=== PATIENT | female | born 1960 | race Caucasian/White ===

== ENCOUNTER 2016-09-28 16:15 | Inpatient (IN) | payer BC ==
[~2016-09-28] VITALS: Ht 154.9 cm; Wt 47.5 kg
[~2016-09-28 16:15] MED LIST: AMBI10TA PO; APIDINJ SQ/IV; CAPT12.52 PO; LANTUSP SQ; LEVO50TA4 PO; PERC5TAB12 PO; PRENTAB PO; SIMV40TA PO; TAB-TAB PO; VENL100T PO
[2016-09-28 16:16] VITALS: BP 137/68; PULSE 112; RESP 20; TEMP 97.9; O2SAT 97
--- NOTE | 2016-09-28 16:29 | PD ---
Physical Exam Date Seen by Provider: Sep 28, 2016 Time Seen by Provider: 16:25 Narrative Patient seen in Triage. Patient is insulin dependent diabetic with Hx. Cat bite to the left hand and thumb 4 days ago. Patient seen by her PCP and placed on Cipro and Clindamycin PO with little improvement. Patient seen By Dr. Crawford today and told to come in to ED for admission for IV ABX. Patient denies Weakness or Numbness, but has ongoing pain and swelling. Patient denies Fever. Vital Signs Stable. Patient awaiting bed Placement. Data Data Last Documented VS Vital Signs Date Time Temp Pulse Resp B/P Pulse Ox O2 Delivery O2 Flow Rate FiO2 09/28/16 16:16 97.9 112 20 137/68 97 Room Air [facility] Medical Record Reviewed: Yes Supervised Visit with CARLA: Yes Condition: Stable Brian Del Cid Sep 28, 2016 16:29
[2016-09-28] MEDS ORDERED: SODIUM CHLORIDE 0.9% FLUSH 10 ML FLUSH IV FLUSH PRN ×2 (19:00→21:45)
--- NOTE | 2016-09-28 19:08 | PD ---
HPI Chief Complaint: Bite or Sting Time Seen by Provider: 18:53 Travel History International Travel<30 days: No Contact w/Intl Traveler<30days: No Traveled to known affect area: No History of Present Illness HPI Patient is a 56-year-old female who was bitten by a cat 2 days ago. Patient states this Belongs to her daughter but the cat had formerly lived on the street. Shots are unknown. Apparently the cat [facility] now [facility] and is scheduled for distraction and may have already been put down. Patient states she went to her primary care physician who arranged for her to see a hand surgeon today who is Dr. Crawford. Dr. Crawford stated to the patient that given her uncontrolled diabetes and the fact it is worse much she's been on antibiotics to come into the emergency department for IV antibiotics and be admitted. Patient denies any fevers denies any abdominal pain nausea vomiting diarrhea. Patient is penicillin allergic and states that her face swells when she receives penicillin. PFSH Past Medical History Anemia: Yes Cardiovascular Problems: Yes (MITRAL VALVE PROLAPSE) High Cholesterol: Yes Diabetes: Yes Diminished Hearing: No Hypertension: Yes Menopausal: Yes Social History Alcohol Use: Yes (OCCAS. MIX DRINKS) Tobacco Use: No Substance Use: No Allergies-Medications (Allergen,Severity, Reaction): Coded Allergies: Advil (Verified Allergy, Severe, FACE SWELLS, 09/28/16) Sulfa (Verified Allergy, Severe, edema, 09/28/16) Penicillin (Verified Allergy, Unknown, facial edema, 09/28/16) Reported Meds & Prescriptions Reported Meds & Active Scripts Active Reported Captopril 12.5 Mg Tab 12.5 Mg PO BID Take 1 hour before meals. Levothyroxine (Levothyroxine Sodium) 50 Mcg Tab 50 Mcg PO DAILY Multiple Vitamin 1 Tab 1 Tab PO HS Simvastatin 40 Mg Tab 40 Mg PO HS Effexor XR 24 HR (Venlafaxine HCl) 75 Mg Cap 75 Mg PO BID Ambien (Zolpidem Tartrate) 5 Mg Tab 5-10 Mg PO HS PRN Novolog Inj (Insulin Aspart) 1,000 Unit/10 Ml Vial Unknown Dose SQ ACHS Max dose at bedtime:( )units; sugars less than 70,(0)units; sugars 150-199,(1) unit; sugars 200-249,(3) units; sugars 250-299,(5) units; sugars 300-349,(7) units; sugars greater than 349,(9) units Levemir Inj (Insulin Detemir) 1,000 unit/ 10 ML Vial 20 Units SQ HS Do not mix with any other Insulin. Review of Systems Except as stated in HPI: all other systems reviewed are Neg Physical Exam Narrative GENERAL: Well-developed well-nourished no apparent distress. SKIN: Focused skin assessment warm/dry. There are 2 puncture wounds on the left wrist. There is some mild surrounding cellulitis and swelling. Consistent with an animal bite cellulitis and dermatitis. There is also a small scratch over the right wrist. HEAD: Atraumatic. Normocephalic. EYES: Pupils equal and round. No scleral icterus. No injection or drainage. ENT: No nasal bleeding or discharge. Mucous membranes pink and moist. NECK: Trachea midline. No JVD. CARDIOVASCULAR: Regular rate and rhythm. No murmur appreciated. RESPIRATORY: No accessory muscle use. Clear to auscultation. Breath sounds equal bilaterally. GASTROINTESTINAL: Abdomen soft, non-tender, nondistended. Hepatic and splenic margins not palpable. MUSCULOSKELETAL: No obvious deformities. No clubbing. No cyanosis. No edema. Upper extremities: There is some mild edema and erythema over the left wrist as described. Some small scratches over the right wrist. Pulses motor and sensory intact distally in all 4 extremities, compartments are soft. NEUROLOGICAL: Awake and alert. No obvious cranial nerve deficits. Motor grossly within normal limits. Normal speech. PSYCHIATRIC: Appropriate mood and affect; insight and judgment normal. Data Data Last Documented VS Vital Signs Date Time Temp Pulse Resp B/P Pulse Ox O2 Delivery O2 Flow Rate FiO2 09/28/16 19:25 89 20 106/73 97 Room Air 09/28/16 16:16 97.9 Orders Complete Blood Count With Diff (09/28/16 18:53) Comprehensive Metabolic Panel (09/28/16 18:53) Lactic Acid (09/28/16 18:53) Iv Access Insert/Monitor (09/28/16 18:53) Ecg Monitoring (09/28/16 18:53) Oximetry (09/28/16 18:53) Sodium Chloride 0.9% Flush (Ns Flush) (09/28/16 19:00) Blood Culture (09/28/16 18:54) Hand, Complete ([id number]) (09/28/16 ) Ciprofloxacin 400 Mg Premix (Cipro 400 M (09/28/16 20:45) Metronidazole 500 Mg Inj (Flagyl 500 Mg (09/28/16 20:45) Rabies Vaccine Chick Emb Inj (Rabavert I (09/28/16 20:45) Rabies Immune Globulin Inj (Hyperrab S/D (09/28/16 20:45) Admit Order (Ed Use Only) (09/28/16 ) Admit To Inpatient (09/28/16 ) Vital Signs (Adult) Q4H (09/28/16 21:37) Activity Oob With Assistance (09/28/16 21:37) Shuttle Hand / Telemetry .CONTINUOUS (09/28/16 21:37) Sodium Chloride 0.9% Flush (Ns Flush) (09/28/16 21:45) Sodium Chloride 0.9% Flush (Ns Flush) (09/29/16 09:00) Basic Metabolic Panel (Bmp) (09/29/16 06:00) Complete Blood Count With Diff (09/29/16 06:00) Case Management Consult (09/28/16 21:37) Naloxone Inj (Narcan Inj) (09/28/16 21:45) Inpatient Certification (09/28/16 ) Consult Hand Surgery (09/28/16 ) Labs Laboratory Tests Test 09/28/16 19:30 White Blood Count 6.4 TH/MM3 Red Blood Count 4.43 MIL/MM3 Hemoglobin 13.0 GM/DL Hematocrit 37.5 % Mean Corpuscular Volume 84.8 FL Mean Corpuscular Hemoglobin 29.3 PG Mean Corpuscular Hemoglobin 34.6 % Concent Red Cell Distribution Width 12.6 % Platelet Count 168 TH/MM3 Mean Platelet Volume 8.7 FL Neutrophils (%) (Auto) 70.7 % Lymphocytes (%) (Auto) 20.0 % Monocytes (%) (Auto) 7.2 % Eosinophils (%) (Auto) 1.6 % Basophils (%) (Auto) 0.5 % Neutrophils # (Auto) 4.5 TH/MM3 Lymphocytes # (Auto) 1.3 TH/MM3 Monocytes # (Auto) 0.5 TH/MM3 Eosinophils # (Auto) 0.1 TH/MM3 Basophils # (Auto) 0.0 TH/MM3 CBC Comment DIFF FINAL Differential Comment Sodium Level 137 MEQ/L Potassium Level 3.8 MEQ/L Chloride Level 100 MEQ/L Carbon Dioxide Level 30.9 MEQ/L Anion Gap 6 MEQ/L Blood Urea Nitrogen 8 MG/DL Creatinine 0.67 MG/DL Estimat Glomerular Filtration 92 ML/MIN Rate Random Glucose 253 MG/DL Lactic Acid Level 0.9 mmol/L Calcium Level 8.6 MG/DL Total Bilirubin 1.0 MG/DL Aspartate Amino Transf 10 U/L (AST/SGOT) Alanine Aminotransferase 19 U/L (ALT/SGPT) Alkaline Phosphatase 111 U/L Total Protein 7.3 GM/DL Albumin 3.8 GM/DL MDM Medical Decision Making Medical Screen Exam Complete: Yes Emergency Medical Condition: Yes Differential Diagnosis Bite cellulitis, rabies exposure, uncontrolled diabetes. Narrative Course Patient was roomed in emergency department, I did discuss with Dr. Crawford who would like to see tomorrow morning at the patient is placed inpatient for IV antibiotics. I also discussed with the patient rabies prophylaxis and at this point I think that rabies prophylaxis is indicated as the patient does not have the cat and is not available for monitoring and was previously unvaccinated as well as a street. X-rays were obtained and showed no abnormality. The patient' s basic labs including CBC and CMP are reassuring. Patient was given immunoglobulin in both the left wrist and the right wrist at the sites of scratches/bites. This was given personally by me. She was also given the vaccine in her right gluteus. Would recommend that the patient receive repeat vaccination in her gluteal muscles on days 3, 7, 14 (today is day 0). This per CDC recommendations. These recommendations were discussed with Dr. Montoya when the patient was admitted. Diagnosis Primary Impression: Pasteurella cellulitis due to cat bite Admitting Information Admitting Physician Requests: Admit Condition: Stable Teddy Baugh MD Sep 28, 2016 19:08
[2016-09-28 19:25] VITALS: BP 106/73; PULSE 89; RESP 20; O2SAT 97
[2016-09-28 19:53] LABS: AUTOMATED NEUTROPHIL # 4.5 TH/MM3 (1.8-7.7); BASOPHIL % 0.5 % (0.0-2.0); EOSINOPHIL # 0.1 TH/MM3 (0-0.4); EOSINOPHIL % 1.6 % (0.0-4.0); HEMATOCRIT 37.5 % (35.0-46.0); HEMO FLAGS DIFF FINAL; LYMPHOCYTE # 1.3 TH/MM3 (1.0-4.8); MEAN CELL VOLUME 84.8 FL (80.0-100.0); MEAN CORPUSCULAR HEMOGLOBIN 29.3 PG (27.0-34.0); MEAN CORPUSCULAR HGB CONC 34.6 % (32.0-36.0); MONO % 7.2 % (0.0-8.0); NEUT % 70.7 % (16.0-70.0); PLATELET COUNT 168 TH/MM3 (150-450); RED BLOOD COUNT 4.43 MIL/MM3 (4.00-5.30); RED CELL DISTRIBUTION WIDTH 12.6 % (11.6-17.2); WHITE BLOOD COUNT 6.4 TH/MM3 (4.0-11.0)
[2016-09-28 20:05] LABS: ANION GAP 6 MEQ/L (5-15); AST (GOT) 10 U/L (15-37); BICARBONATE 30.9 MEQ/L (21.0-32.0); BLOOD UREA NITROGEN 8 MG/DL (7-18); CHLORIDE 100 MEQ/L (98-107); GLOMERULAR FILTRATION RATE 92 ML/MIN (>89); POTASSIUM 3.8 MEQ/L (3.5-5.1); SODIUM (NA) 137 MEQ/L (136-145)
[2016-09-28 20:08] LABS: ALKALINE PHOSPHATASE 111 U/L (45-117); ALT (GPT) 19 U/L (10-53)
[2016-09-28] MEDS ORDERED: RABIES IMMUNE GLOBULIN INJ 300 UNITS/2 ML VIAL IM ONE (20:45)
[2016-09-28] MEDS ORDERED: metroNIDAZOLE 500 MG INJ 100 ML IV ONE (20:45)
[2016-09-28] MEDS ORDERED: CIPROFLOXACIN 400 MG PREMIX 200 ML IV ONE (20:45)
[2016-09-28] MEDS ORDERED: RABIES VACCINE CHICK EMB INJ 2.5 UNITS/ML SYR IM ONE (20:45)
--- NOTE | 2016-09-28 20:46 | RADRPT ---
EXAM DATE/TIME: 09/28/2016 20:30 [place] COMPARISON: No previous studies available for comparison. INDICATIONS : Patient has a cat bite from Sunday evening. MEDICAL HISTORY : None. SURGICAL HISTORY : None. ENCOUNTER: Initial ACUITY: 4 - 6 days PAIN SCORE: 2/10 LOCATION: Left First digit and wrist aspect. FINDINGS: Three view examination of the left hand demonstrates no soft tissue swelling, dislocation, or fractur e. The carpal bones appear intact. The interphalangeal and metacarpophalangeal joints are intact. Bony mineralization is normal. CONCLUSION: No acute disease. Teddy Naik MD on September 28, 2016 at 20:43 Board Certified Radiologist. This report was verified electronically.
[2016-09-28] MEDS ORDERED: AMBI5TAB PO (21:20)
[2016-09-28] MEDS ORDERED: NOVOLOGP2 SQ (21:20)
[2016-09-28] MEDS ORDERED: MULTTAB67 PO (21:20)
[2016-09-28] MEDS ORDERED: LEVEMIR SQ (21:20)
[2016-09-28] MEDS ORDERED: VENL75XR PO (21:20)
[2016-09-28] MEDS ORDERED: SIMV40TA PO (21:20)
[2016-09-28] MEDS ORDERED: LEVO50TA4 PO (21:22)
[2016-09-28] MEDS ORDERED: CAPT12.52 PO (21:22)
[2016-09-28] MEDS ORDERED: GLUCAGON 1 MG/ML VIAL OTHER PRN (21:45)
[2016-09-28] MEDS ORDERED: NALOXONE HCL 0.4 MG/ML AMP IV PRN (21:45)
[2016-09-28] MEDS ORDERED: DEXTROSE 50% IN WATER 50 ML VIAL(D50) IV PUSH PRN (21:45)
--- NOTE | 2016-09-28 22:21 | HHI.HP ---
[facility] Nikolas Zee MD Admission Diagnosis Infected Cat Bite Diagnoses: Travel History International Travel<30 Days: No Contact w/Intl Traveler <30 Da: No Traveled to Known Affected Are: No History of Present Illness sunday night was bit sunday clinda and cipro today dr ronquillo - sent for iv antbiotics due to dm think it was better less swelling less redness 2 wounds but no drainage allergic to pcn- as teenager, hands swelling, Review of Systems Except as stated in HPI: all other systems reviewed are Neg Past Family Social History Past Medical History htn dm hypothyroidism raynauds phemonon Past Surgical History ovaries and fallopian tubes removed - cyst on ovary that changed in size, but not cancer post op Allergies: Coded Allergies: Advil (Verified Allergy, Severe, FACE SWELLS, 09/28/16) Sulfa (Verified Allergy, Severe, edema, 09/28/16) Penicillin (Verified Allergy, Unknown, facial edema, 09/28/16) Family History mom and dad copd- smoked sister - connective tissue disorder Social History no smoking/ etoh abuse/ drugs abuse Physical Exam Vital Signs Vital Signs Date Time Temp Pulse Resp B/P Pulse Ox O2 Delivery O2 Flow Rate FiO2 09/28/16 19:25 89 20 106/73 97 Room Air 09/28/16 16:16 97.9 112 20 137/68 97 Room Air Physical Exam GENERAL: This is a well-nourished, well-developed patient, in no apparent distress. SKIN: No rashes, ecchymoses or lesions. Cool and dry. HEAD: Atraumatic. Normocephalic. No temporal or scalp tenderness. EYES: PNo scleral icterus. No injection or drainage. ENT: Nose without bleeding, purulent drainage or septal hematoma. Airway patent. NECK: Trachea midline. No JVD CARDIOVASCULAR: Regular rate and rhythm without murmurs, gallops, or rubs. RESPIRATORY: Clear to auscultation. Breath sounds equal bilaterally. No wheezes , rales, or rhonchi. GASTROINTESTINAL: Abdomen soft, non-tender, nondistended. No guarding. MUSCULOSKELETAL: Extremities without clubbing, cyanosis, or edema. No calf tenderness. Left wrist and hand in surgical dressing. Examination revealed erythema, edema, at wrist joint with evidence of bite clark at 3 [address]. No purulent discharge. NEUROLOGICAL: Awake and alert. Limited range of motion at left wrist joint Normal speech. Laboratory Laboratory Tests Test 09/28/16 19:30 White Blood Count 6.4 Red Blood Count 4.43 Hemoglobin 13.0 Hematocrit 37.5 Mean Corpuscular Volume 84.8 Mean Corpuscular Hemoglobin 29.3 Mean Corpuscular Hemoglobin 34.6 Concent Red Cell Distribution Width 12.6 Platelet Count 168 Mean Platelet Volume 8.7 Neutrophils (%) (Auto) 70.7 Lymphocytes (%) (Auto) 20.0 Monocytes (%) (Auto) 7.2 Eosinophils (%) (Auto) 1.6 Basophils (%) (Auto) 0.5 Neutrophils # (Auto) 4.5 Lymphocytes # (Auto) 1.3 Monocytes # (Auto) 0.5 Eosinophils # (Auto) 0.1 Basophils # (Auto) 0.0 CBC Comment DIFF FINAL Differential Comment Sodium Level 137 Potassium Level 3.8 Chloride Level 100 Carbon Dioxide Level 30.9 Anion Gap 6 Blood Urea Nitrogen 8 Creatinine 0.67 Estimat Glomerular Filtration 92 Rate Random Glucose 253 Lactic Acid Level 0.9 Calcium Level 8.6 Total Bilirubin 1.0 Aspartate Amino Transf 10 (AST/SGOT) Alanine Aminotransferase 19 (ALT/SGPT) Alkaline Phosphatase 111 Total Protein 7.3 Albumin 3.8 Date/Time Procedure Status Source Growth 09/28/16 19:35 Aerobic Blood Culture Received Blood Peripheral Pending 09/28/16 19:35 Anaerobic Blood Culture Received Blood Peripheral Pending Result Diagram: 09/28/16192909/28/16 193 Imaging Last 72 hours Impressions Hand X-Ray 09/28/16 0000 Signed Impressions: Service Date/Time: August 20:30 - CONCLUSION: No acute disease. Teddy Naik MD Assessment and Plan Assessment and Plan Impression: Cat bitewith not much improvement with outpatient antibiotics therapy HTN dm hypothyroidism raynauds phemonon Plan: Patient's wounds was irrigated and cleans in ER. She also had seen a hand surgeon in the morning. She was given ciprofloxacin IV and Flagyl IV in ER. Agree with the inflamed. We'll continue antibiotics with levofloxacin 750 mg IV every 24 hours with Flagyl 500 mg IV every 6 hours. Patient's daughter had this little cat as a stray cat who lives at home and goes outside whenever he wants. She has not been vaccinated. Therefore rabies immune vaccination and immunoglobulin were given in ER with the consent of Patients. We'll need to continue rabvert vaccine on day 3, 7, 14. Today's counted as day 0. DVT prophylaxiswith heparin Discussed Condition With patient, er md Physician Certification 2 Midnight Certification Type: Admission for Inpatient Services Order for Inpatient Services The services are ordered in accordance with Medicare regulations or non- Medicare payer requirements, as applicable. In the case of services not specified as inpatient-only, they are appropriately provided as inpatient services in accordance with the 2-midnight benchmark. Estimated LOS (days): 2 days is the estimated time the patient will need to remain in the hospital, assuming treatment plan goals are met and no additional complications. Post-Hospital Plan: Home Mine Gonzalez MD Sep 28, 2016 22:21
[2016-09-28 22:47] VITALS: BP 116/70; PULSE 85; RESP 20; O2SAT 97
[2016-09-28] MEDS: ZOLPIDEM TARTRATE 5 MG TAB PO PRN ×2 (23:07→23:17)
[2016-09-29 03:00] VITALS: BP 110/68; PULSE 84; RESP 16; O2SAT 99
[2016-09-29 05:55] LABS: AUTOMATED NEUTROPHIL # 3.6 TH/MM3 (1.8-7.7); BASOPHIL % 0.9 % (0.0-2.0); EOSINOPHIL # 0.1 TH/MM3 (0-0.4); EOSINOPHIL % 2.2 % (0.0-4.0); HEMATOCRIT 36.8 % (35.0-46.0); HEMO FLAGS DIFF FINAL; LYMPH % 19.9 % (9.0-44.0); MEAN CELL VOLUME 83.1 FL (80.0-100.0); MEAN CORPUSCULAR HEMOGLOBIN 29.2 PG (27.0-34.0); MEAN CORPUSCULAR HGB CONC 35.2 % (32.0-36.0); MONO % 6.7 % (0.0-8.0); NEUT % 70.3 % (16.0-70.0); PLATELET COUNT 147 TH/MM3 (150-450); RED BLOOD COUNT 4.43 MIL/MM3 (4.00-5.30); RED CELL DISTRIBUTION WIDTH 12.8 % (11.6-17.2); WHITE BLOOD COUNT 5.1 TH/MM3 (4.0-11.0)
[2016-09-29] MEDS: metroNIDAZOLE 500 MG INJ 100 ML IV SCH ×3 (06:00→17:04)
[2016-09-29 06:13] LABS: BICARBONATE 30.2 MEQ/L (21.0-32.0); POTASSIUM 4.1 MEQ/L (3.5-5.1)
[2016-09-29] MEDS: LEVOTHYROXINE SODIUM 50 MCG TAB PO SCH (07:00)
[2016-09-29 08:00] VITALS: BP 109/63; PULSE 88; RESP 18; O2SAT 98
[2016-09-29] MEDS: INSULIN ASPART SUPPLEMENTAL SCALE SQ SCH ×4 (08:17→21:54)
[2016-09-29] MEDS: LEVOFLOXACIN 750 MG PREMIX INJ 150 ML IV SCH (08:17)
[2016-09-29] MEDS: SODIUM CHLORIDE 0.9% FLUSH 10 ML FLUSH IV FLUSH SCH ×2 (09:00→21:00)
[2016-09-29] MEDS: CAPTOPRIL 12.5 MG TAB PO SCH ×2 (10:10→21:53)
[2016-09-29] MEDS: VENLAFAXINE HCL XR 75 MG CAP PO SCH ×2 (10:11→21:52)
[2016-09-29 11:21] VITALS: BP 115/68; PULSE 89; RESP 18; TEMP 97; O2SAT 96
--- NOTE | 2016-09-29 12:26 | HHI.PR ---
Subjective Remarks f/u for animal bite hand infection. patient stated infection improved drastically. She stated she now can move her fingers. Pain controlled. remains afebrile. Objective Vitals Vital Signs Date Time Temp Pulse Resp B/P Pulse Ox O2 Delivery O2 Flow Rate FiO2 09/29/16 11:21 97.0 89 18 115/68 96 09/29/16 08:00 88 18 109/63 98 Room Air 09/29/16 03:00 84 16 110/68 99 Room Air 09/28/16 22:47 85 20 116/70 97 Room Air 09/28/16 19:25 89 20 106/73 97 Room Air 09/28/16 16:16 97.9 112 20 137/68 97 Room Air Result Diagram: 09/29/16 0509/29/16 05 Objective Remarks GENERAL: in NAD SKIN: left hand + wounds with pustular pockets noted. mild erythema. no warmth. CARDIOVASCULAR: Regular rate and rhythm without murmurs, gallops, or rubs. RESPIRATORY: Breath sounds equal bilaterally. No accessory muscle use. GASTROINTESTINAL: Abdomen soft, non-tender, nondistended. MUSCULOSKELETAL: left hand improved ROM of fingers but limited. BACK: Nontender without obvious deformity. No CVA tenderness. Medications and IVs Current Medications Sodium Chloride 2 ml 2 ml UNSCH PRN IV FLUSH FLUSH AFTER USING IV ACCESS; Start 09/28/16 at 19:00; Stop 09/28/16 at 21:40; Status DC Ciprofloxacin/ Dextrose 200 ml @ 200 mls/hr ONCE ONCE IV Last administered on 09/28/16 22:47; Start 09/28/16 at 20:45; Stop 09/28/16 at 21:44; Status DC Metronidazole (Flagyl 500 Mg Inj) 100 ml @ 100 mls/hr ONCE ONCE IV Last administered on 09/28/16 20:59; Start 09/28/16 at 20:45; Stop 09/28/16 at 21:44 ; Status DC Rabies Vaccine Chick Emryo Cell (Rabavert Inj) 2.5 units ONCE ONCE IM Last administered on 09/28/16 21:19; Start 09/28/16 at 20:45; Stop 09/28/16 at 20:46 ; Status DC Rabies Immune Globulin (Hyperrab S/D Inj) 960 units ONCE ONCE IM Last administered on 09/28/16 21:34; Start 09/28/16 at 20:45; Stop 09/28/16 at 20:46 ; Status DC Sodium Chloride (NS Flush) 2 ml UNSCH PRN IV FLUSH FLUSH AFTER USING IV ACCESS ; Start 09/28/16 at 21:45 Sodium Chloride (NS Flush) 2 ml BID IV FLUSH Last administered on 09/29/16 09: 00; Start 09/29/16 at 09:00 Naloxone HCl (Narcan Inj) 0.4 mg UNSCH PRN IV SEE LABEL COMMENTS; Start at 21:45 Captopril (Capoten) 12.5 mg BID PO Last administered on 09/29/16 10:10; Start 09/29/16 at 09:00 Levothyroxine Sodium (Synthroid) 50 mcg DAILY@07 PO ; Start 09/29/16 at 07:00 Venlafaxine HCl (Effexor Xr) 75 mg BID PO Last administered on 09/29/16 10:11 ; Start 09/29/16 at 09:00 Pravastatin Sodium (Pravachol) 80 mg HS PO CM; Start 09/29/16 at 21:00 Dextrose (D50w (Vial) Inj) 25 ml UNSCH PRN IV PUSH HYPOGLYCEMIA-SEE COMMENTS; Start 09/28/16 at 21:45 Glucagon (Glucagon Inj) 1 mg UNSCH PRN OTHER HYPOGLYCEMIA-SEE COMMENTS; Start 09/28/16 at 21:45 Insulin Aspart (NovoLOG SUPPLEMENTAL SCALE) 1 ACHS SLIDING SCALE SQ Last administered on 09/29/16 11:15; Start 09/29/16 at 07:00 Zolpidem Tartrate 5 mg 5 mg HS PRN PO insomnia Last administered on 09/28/16 23:17; Start 09/28/16 at 22:30 Levofloxacin/ Dextrose 150 ml @ 100 mls/hr Q24H IV Last administered on 08:17; Start 09/29/16 at 08:00 Metronidazole (Flagyl 500 Mg Inj) 100 ml @ 100 mls/hr Q6H IV Last administered on 09/29/16 11:14; Start 09/29/16 at 06:00 A/P Assessment and Plan Cat bite with cellulitis -failed outpatient antibiotics therapy -IMPROVED on current antibiotics. continue levofloxacin 750 mg IV every 24 hours with Flagyl 500 mg IV every 6 hours since there is improvement. -pending hand surgeon consult. -Rabies immune vaccination and immunoglobulin were given in ER with the consent of Patients. We will need to continue rabvert vaccine on day 3, 7, 14. Today's counted as day 1. HTN, T2dm, hypothyroidism,raynauds -home medication resumed. DVT prophylaxiswith heparin Angela Babb MD Sep 29, 2016 12:26
[2016-09-29 16:10] VITALS: BP 116/64; PULSE 92; RESP 18; TEMP 98; O2SAT 95
--- NOTE | 2016-09-29 18:38 | PD.ORT.PN ---
Subjective Subjective Remarks 56yF patient seen in the office yesterday and referred to ER for admission for IV Ab after cat bite left hand in patient with uncontrolled DM. Patient reports improvement overnight on IV Ab Objective Vitals Vital Signs Date Time Temp Pulse Resp B/P Pulse Ox O2 Delivery O2 Flow Rate FiO2 09/29/16 16:10 98.0 92 18 116/64 95 09/29/16 11:21 97.0 89 18 115/68 96 09/29/16 08:00 88 18 109/63 98 Room Air 09/29/16 03:00 84 16 110/68 99 Room Air 09/28/16 22:47 85 20 116/70 97 Room Air 09/28/16 19:25 89 20 106/73 97 Room Air Result Diagram: 09/29/16 0529 09/29/16 0529 Objective Remarks Swelling and erythema improved left hand. able to extend and flex all fingers near full ROM, sitlt m/u/r, 2+ radial pulse, small open bite on dorsum left hand Assessment & Plan Assessment and Plan 56yF 4 days s/p cat bite left hand in patient with DM -Improved overnight on IV Ab -No indication for OR at this time, okay to resume diabetic diet and possible d/ c tomorrow on oral antibiotics with followup on Sunday -will continue to follow closely -Appreciate medical management of glucose Deborah Crawford MD Sep 29, 2016 18:38
[2016-09-29 19:09] VITALS: BP 118/66; PULSE 94; RESP 18; TEMP 98.2; O2SAT 97
[2016-09-29] MEDS ORDERED: PRAVASTATIN SOD 40 MG TAB PO SCH (21:00)
[2016-09-29] MEDS ORDERED: ACETAMINOPHEN 325 MG TAB PO PRN (21:45)
[2016-09-29] MEDS: ONDANSETRON HCL 4 MG/2 ML VIAL IVP PRN (21:47)
[2016-09-29] MEDS: ZOLPIDEM TARTRATE 5 MG TAB PO PRN (21:53)
[2016-09-30] MEDS: metroNIDAZOLE 500 MG INJ 100 ML IV SCH ×3 (00:25→12:09)
[2016-09-30 04:21] VITALS: BP 127/71; PULSE 91; RESP 18; TEMP 98.2; O2SAT 97
[2016-09-30] MEDS: INSULIN ASPART SUPPLEMENTAL SCALE SQ SCH ×2 (06:53→13:06)
[2016-09-30] MEDS: LEVOTHYROXINE SODIUM 50 MCG TAB PO SCH (06:53)
[2016-09-30 08:09] VITALS: BP 100/58; PULSE 94; RESP 18; TEMP 98.8; O2SAT 95
[2016-09-30] MEDS: SODIUM CHLORIDE 0.9% FLUSH 10 ML FLUSH IV FLUSH SCH (09:00)
[2016-09-30] MEDS: CAPTOPRIL 12.5 MG TAB PO SCH (09:00)
[2016-09-30] MEDS: LEVOFLOXACIN 750 MG PREMIX INJ 150 ML IV SCH (09:28)
[2016-09-30] MEDS: VENLAFAXINE HCL XR 75 MG CAP PO SCH (09:28)
--- NOTE | 2016-09-30 10:20 | HHI.PR ---
Subjective Remarks Follow-up for cat bite with cellulitis. The patient reports that her left hand/ wrist continues to improve. She feels like the pain and swelling continued to improve. She states it still is a little bit tender. She was previously on Cipro and clindamycin, changed to Levaquin and Flagyl here. She had a single episode of vomiting last night with associated headache, no headache, nausea, or vomiting since then, tolerating diet. She reports dressing was changed earlier today because he did become loose. She had not noticed any drainage. Objective Vitals Vital Signs Date Time Temp Pulse Resp B/P Pulse Ox O2 Delivery O2 Flow Rate FiO2 09/30/16 08:09 98.8 94 18 100/58 95 09/30/16 04:21 98.2 91 18 127/71 97 09/29/16 19:09 98.2 94 18 118/66 97 09/29/16 16:10 98.0 92 18 116/64 95 09/29/16 11:21 97.0 89 18 115/68 96 Result Diagram: 09/29/16 0529 09/29/16 0529 Imaging Last Impressions Hand X-Ray 09/28/16 0000 Signed Impressions: Service Date/Time: August 20:30 - CONCLUSION: No acute disease. Teddy Naik MD Objective Remarks GENERAL: Well-developed well-nourished. In no acute distress. SKIN: Warm and dry. Left wrist with dressing, CDI. HEENT: Normocephalic. Pupils equal and round. Mucous membranes pink and moist. CARDIOVASCULAR: Regular rate and rhythm. No murmur appreciated. RESPIRATORY: No accessory muscle use. Clear to auscultation. Breath sounds equal bilaterally. GASTROINTESTINAL: Abdomen soft, non-tender, nondistended. Bowel sounds x4. MUSCULOSKELETAL: No obvious deformities. No clubbing or cyanosis. No edema. Able to fully flex and extend fingers of left hand with sensation and perfusion in the hand grossly intact. NEUROLOGICAL: Awake and alert. No focal neurological deficits. Moves upper and lower extremities spontaneously. Normal speech. PSYCHIATRIC: Appropriate mood and affect; insight and judgment normal. A/P Assessment and Plan 56-year-old female with past medical history of HTN, DM, hypothyroidism, Raynaud 's phenomenon who presented with persistent infection after a to cat bite Cat bite with cellulitis failed outpatient antibiotics therapy -IMPROVED on current antibiotics. continue levofloxacin 750 mg IV every 24 hours with Flagyl 500 mg IV every 6 hours, changed to oral at DC -And surgeon consulted, no indication for a this time, possible DC today on oral antibiotics for follow-up on Sunday -Rabies immune vaccination and immunoglobulin were given in ED -continue RabAvert vaccine on day 3, 7, 14. Started 09/28/16. Give day 3 dose today. Diabetes mellitus -Coverage with sliding scale and Accu-Cheks -Resume home Levemir HTN, hypothyroidism, raynauds -home medication resumed. DVT prophylaxiswith heparin Discharge Planning Follow-up hand surgery recommendations. Discharge planning if cleared by hand surgery. 1500 patient cleared for discharge by hand surgery for outpatient follow-up on Sunday. Discussed with RN, will give third dose of rabies vaccination. Continue Levaquin and Flagyl. Continue PCP follow-up for further care. Discharge home today in stable condition. Vic Lombardi Sep 30, 2016 10:20 Alec Carter DO Sep 30, 2016 17:36
[2016-09-30 11:50] VITALS: BP 119/65; PULSE 101; RESP 18; TEMP 97.8; O2SAT 95
[2016-09-30] MEDS: ONDANSETRON HCL 4 MG/2 ML VIAL IVP PRN (12:09)
[2016-09-30] MEDS ORDERED: LEVO750T33 PO (15:02)
[2016-09-30] MEDS ORDERED: METR-1 PO (15:02)
[2016-09-30] MEDS ORDERED: RABIES VACCINE CHICK EMB INJ 2.5 UNITS/ML SYR IM ONE (17:00)
[2016-09-30] MEDS ORDERED: INSULIN DETEMIR 100 UNITS/ML VIAL SQ SCH (21:00)
== END 2016-09-30 16:20 | disposition home or self-care (01) | DRG 605 ==
LOC: NEPA 16:15 → NEDA 21:38 → NEDH 09-29 02:21 → NEPGCP 09-29 09:51
PROVIDERS: ADMIT Hospitalist; ATTEND Hospitalist
DX: S61.452A Open bite of left hand, initial encounter (principal); E11.65 Type 2 diabetes mellitus with hyperglycemia; Z79.4 Long term (current) use of insulin; L03.114 Cellulitis of left upper limb; B96.89 Other specified bacterial agents as the cause of diseases classified elsewhere; W55.01XA Bitten by cat, initial encounter; Z29.14 Encounter for prophylactic rabies immune globulin; Z23 Encounter for immunization; Z88.0 Allergy status to penicillin; I34.1 Nonrheumatic mitral (valve) prolapse; E78.00 Pure hypercholesterolemia, unspecified; I10 Essential (primary) hypertension; E03.9 Hypothyroidism, unspecified; I73.00 Raynaud's syndrome without gangrene
CPT/HCPCS: 73130; 80048; 80053; 82948; 83605; 85025; 85652; 86140; 87040; 90375; 90471; 90675; 96365; 96375; J0744; J1815; J1956; J2405